=== PATIENT | male | born 1985 | race Caucasian/White ===

== ENCOUNTER 2018-10-18 03:12 | Emergency (ER) | payer MEDICAID ==
[~2018-10-18] VITALS: Ht 177.8 cm; Wt 72.6 kg
[2018-10-18] MEDS ORDERED: HYDROcodone-ACET 10/325MG TAB PO ONE (09:45)
[2018-10-18 10:16] VITALS: BP 105/60
== END 2018-10-18 10:17 | disposition home or self-care (01) ==
LOC: ER 03:17
DX: S02.609A Fracture of mandible, unspecified, initial encounter for closed fracture (principal); F12.10 Cannabis abuse, uncomplicated; F10.10 Alcohol abuse, uncomplicated; W51.XXXA Accidental striking against or bumped into by another person, initial encounter; Y93.89 Activity, other specified; Y92.89 Other specified places as the place of occurrence of the external cause; Y99.8 Other external cause status
CPT/HCPCS: 70486